=== PATIENT | female | born 1940 | race Caucasian/White ===

== ENCOUNTER 2019-12-27 06:00 | Outpatient (RCR) | payer MEDICARE, SELFPAY | END 2020-01-18 23:59 | disposition home or self-care (01) | LOC: GPT 06:00 | PROVIDERS: Family Provider Family Medicine; PCP Family Medicine; Referring Provider Orthopaedic Surgery; Visit Provider Orthopaedic Surgery | DX: Z47.1 Aftercare following joint replacement surgery (principal); Z96.652 Presence of left artificial knee joint | CPT/HCPCS: 97032; 97110; 97112; 97161; 97530; 97760; G0283 ==

== ENCOUNTER 2020-01-19 06:00 | Outpatient (RCR) | payer MEDICARE, SELFPAY | END 2020-02-18 23:59 | disposition home or self-care (01) | LOC: GPT 06:00 | PROVIDERS: PCP Family Medicine; Referring Provider Orthopaedic Surgery; Visit Provider Orthopaedic Surgery | DX: Z47.1 Aftercare following joint replacement surgery (principal); Z96.652 Presence of left artificial knee joint; M25.561 Pain in right knee; M25.661 Stiffness of right knee, not elsewhere classified | CPT/HCPCS: 97032; 97110; 97112; 97116; 97140; 97164; 97530; G0283 ==

== ENCOUNTER 2021-06-20 06:00 | Outpatient (RCR) | payer MEDICARE, SELFPAY | END 2021-07-20 23:59 | disposition home or self-care (01) | LOC: GPT 06:00 | PROVIDERS: PCP Family Medicine; Referring Provider Physician Assistant; Visit Provider Physician Assistant | DX: M54.17 Radiculopathy, lumbosacral region (principal); G89.4 Chronic pain syndrome; M54.50 Low back pain, unspecified; M54.2 Cervicalgia; M54.12 Radiculopathy, cervical region; M46.1 Sacroiliitis, not elsewhere classified; M70.61 Trochanteric bursitis, right hip | CPT/HCPCS: 97032; 97110; 97112; 97162; 97530 ==

== ENCOUNTER 2021-07-21 06:00 | Outpatient (RCR) | payer MEDICARE, SELFPAY | END 2021-08-19 23:59 | disposition home or self-care (01) | LOC: GPT 06:00 | PROVIDERS: PCP Family Medicine; Referring Provider Physician Assistant; Visit Provider Physician Assistant | DX: G89.4 Chronic pain syndrome (principal); M54.50 Low back pain, unspecified; M54.2 Cervicalgia; M54.12 Radiculopathy, cervical region; M46.1 Sacroiliitis, not elsewhere classified; M54.17 Radiculopathy, lumbosacral region; M70.61 Trochanteric bursitis, right hip | CPT/HCPCS: 97032; 97110; 97112; 97164; 97530 ==

== ENCOUNTER 2021-08-20 06:00 | Outpatient (RCR) | payer MEDICARE, SELFPAY | END 2021-08-29 23:59 | disposition home or self-care (01) | LOC: GPT 06:00 | PROVIDERS: PCP Family Medicine; Referring Provider Physician Assistant; Visit Provider Physician Assistant | DX: M54.17 Radiculopathy, lumbosacral region (principal); G89.4 Chronic pain syndrome; M54.50 Low back pain, unspecified; M54.2 Cervicalgia; M54.12 Radiculopathy, cervical region; M46.1 Sacroiliitis, not elsewhere classified; M70.61 Trochanteric bursitis, right hip | CPT/HCPCS: 97110 ==